=== PATIENT | female | born 1950 | race African-American/Black ===

== ENCOUNTER → 2023-11-18 14:08 | Outpatient (REF) | payer OTHER, SELFPAY | LOC: RCS 14:08 | PROVIDERS: ATTENDING PHYSICIAN Nuclear Medicine Nuclear Cardiology; FAMILY PHYSICIAN Internal Medicine | DX: I50.9 Heart failure, unspecified (principal); I25.5 Ischemic cardiomyopathy; I34.0 Nonrheumatic mitral (valve) insufficiency; Z95.1 Presence of aortocoronary bypass graft | CPT/HCPCS: 93306 ==

== ENCOUNTER → 2024-12-06 13:49 | Outpatient (REF) | payer OTHER, SELFPAY | LOC: HWRCS 13:49 | PROVIDERS: ATTENDING PHYSICIAN Nuclear Medicine Nuclear Cardiology; FAMILY PHYSICIAN Internal Medicine | DX: I25.5 Ischemic cardiomyopathy (principal); I50.9 Heart failure, unspecified; I48.0 Paroxysmal atrial fibrillation; I34.0 Nonrheumatic mitral (valve) insufficiency; Z95.1 Presence of aortocoronary bypass graft | CPT/HCPCS: 93306 ==

== ENCOUNTER 2025-08-31 07:32 | Inpatient (IN) | payer OTHER, SELFPAY ==
[2025-08-30] VITALS (7 sets, daily range): BP systolic 95–121; BP diastolic 66–91; PULSE 94–107; BMI 23.6
--- NOTE | 2025-08-30 18:01 | ED.GENMED ---
History of Present Illness
General
Chief Complaint: Heart Rate Problem
Source: patient
Exam Limitations: none
Time Seen by Provider: 08/30/25 17:10
Nursing documentation reviewed up to this point in time: agreed with
History of Present Illness
History of Present Illness:
75-year-old female with extensive medical history as noted presents to the ER with her son for evaluation of 'episodes' of multiple symptoms. She describes for the past few weeks that she has had roughly 2-3 daily episodes without a clear
trigger�she says that they can happen while active or while resting. She describes sensation of palpitations associated with 'feeling paralyzed,' short of breath, loses control of her bladder. It sounds like they typically last a few minutes at a
time. Her son is at bedside and says that he witnessed 1 of these episodes and she was standing at the time and felt very rigid and unsteady but he was able to hold her up. She was not having tonic-clonic activity and she was able to communicate
with him during the episode that something was wrong. She lost control of her bladder at the time. It sounds like she has a history of seizure activity in the past that was somewhat similar (although no palpitations per patient in the past) and had
been on Keppra but son says that she has not been taking correct dosing and when he checked her pill bottles it looked like all the Keppra was .
Past History
Past History
ED Past Medical History: Arrthythmia (Ventricular fibrillation, atrial fibrillation), CAD, COPD, HTN, Hypercholesterolemia, NIDDM, SC, Seizures and Other (Cardiac arrest)
ED Past Surgical History: Cardiac (CABG �4 in 2003, STEMI, Stent X2)
Social History
Tobacco: Non-smoker
Alcohol: None
Drug: None
Personal:
Living: with family
Family History
Family History: Unable to obtain
Review of Systems
Review of Systems
All Other Systems: ROS reviewed and negative except as documented in HPI and ROS
Respiratory: Reports trouble breathing
Cardiac: Reports palpitations; Denies chest pain
ABD/GI: Denies abdominal pain or vomiting
: Reports incontinence
Neurological: Reports weakness; Denies dizzy or headache
Phy Exam
Physical Exam
Physical Exam:
General: Awake, alert, oriented x3; no acute distress
Head: Normocephalic, atraumatic
Eyes: Conjunctiva normal, pupils equal round and reactive to light bilaterally, sclera anicteric
Throat: Airway intact, handling secretions
Neck: Trachea midline, supple without meningismus
Lungs: Clear to auscultation bilaterally, no wheezing, rales, rhonchi
Heart: Regular rate and rhythm, systolic murmur noted
Neuro: Cranial nerves intact, speech fluid, motor and sensory intact in all extremities
Skin: Warm and dry
Extremities: No edema in extremities, warm and well-perfused
Scores
Heart Failure Risk
Heart Failure Risk Score: Not Applicable
Heart Score for Chest Pain Patients
STEMI patient?: Not applicable
Withdrawal Assessment of Alcohol
Withdrawal Assessment Completed?: Not applicable
Course
Orders/Labs/Results
Orders:
Orders
08/30/25 16:26
Electrocardiogram (*1) Urgent
Reason for Study: Chest Pain
EKG- Treatment ONCE
08/30/25 17:12
CR Chest - 2 Views Urgent
Comment:
Reason For Exam: sob
08/30/25 18:10
Complete Blood Count/With Diff Urgent
Comprehensive Metabolic Panel Urgent
Keppra (Levetiracetam) [S] Urgent
Magnesium Urgent
NT-proBNP Urgent
Troponin I Urgent
08/30/25 18:12
TSH Reflex To Free T4 Urgent
08/30/25 18:14
Add On - Microbiology Urgent
Tests Added?: keppra
08/30/25 19:07
Aspirin Chewable [Low Strength Aspirin] 324 mg PO NOW STA
08/30/25 21:00
Troponin I Urgent
Abnormal Lab Results
08/30/25
18:10
WBC 4.2 L 10^3/uL
(4.8-10.8)
MCHC 31.9 L g/dL
(33.0-37.0)
RDW 15.4 H %
(11.5-14.5)
Neutrophils % 41.6 L %
(42.2-75.2)
Monocytes % 9.8 H %
(1.7-9.3)
Eosinophils % 7.9 H %
(0-6)
Creatinine 1.1 H mg/dL
(0.6-1.0)
Troponin I 0.246 H* ng/ml
08/30/25 18:10
08/30/25 18:10
Vital Signs
Initial and Last Documented VS:
Initial Vital Signs
Temp Pulse Resp BP Pulse Ox
36.4 C 67 20 112/73 99
08/30/25 16:21 08/30/25 16:21 08/30/25 16:21 08/30/25 16:21 08/30/25 16:21
Last Documented Vital Signs
Temp Pulse Resp BP Pulse Ox
36.4 C 67 20 112/73 99
08/30/25 16:21 08/30/25 16:21 08/30/25 16:21 08/30/25 16:21 08/30/25 18:04
MDM/Problems Addressed
Differential Diagnosis Includes:
Seizures versus syncope/presyncope�differential would include primary seizure disorder, electrolyte derangement, dysrhythmia, etc
MDM/Problems Addressed:
75-year-old female with extensive history as noted presents for evaluation of episodic weakness associated with palpitations, shortness of breath and loss of bladder control. She does have a history of seizures with some overlap of presentation as
today and has not been compliant with the appropriate Keppra dose recently. Vitals and exam are as above. EKG here shows atrial fibrillation with heart rate of 100. Plan to check labs including a CBC and a CMP, troponin, TFTs. Check Keppra
level. Check chest x-ray. Will monitor on telemetry.
Labs reviewed: CBC no clinically significant abnormalities, chemistry shows creatinine 1.1 which is baseline. Her troponin is elevated to 0.246. Chest x-ray no acute disease. Overall I wonder if she is more describing syncopal/presyncopal events
especially with her associated palpitations rather than seizure-like events. No chest pain to suggest this is anginal at this point. Will plan to admit for monitoring on telemetry, trending of troponin. Discussed with hospitalist for admission.
Chronic conditions affecting care:
Prior cardiac arrest, CAD, CHF, vascular disease
*Radiology
Radiology exam reviewed: preliminary read by ED provider and radiology read reviewed
*Pulse Oximetry
SaO2: 99
Oxygen Mode of Delivery: Room air
Patient hypoxic: no (99%)
*EKG
Interpreted by ED Provider?: Yes
Heart Rate: 100
Rate: tachycardiac
Rhythm: a-fib
[place]: normal axis
Interval: normal interval
QRS Pattern: normal QRS
Ischemia: non-specific ST changes
*Critical Care Note
Total Time (30-74mins, 75-104mins- exclusive of procedures): Not Applicable
Data Reviewed
Review of Other/Old Records Reveals: Labs, Records and Discharge Summary
Source: patient and records
Patient Management
Discussion with other providers: Hospitalist (Discussed with hospitalist)
Escalation/DeEscalation of care consider admission/obs:
Admission indicated
ED Attending Note
-
Portions of this chart may have been created with voice recognition software.� Occasional wrong word or��sound alike� substitutions may have occurred due to the inherent limitations of voice recognition software.
Discharge Plan
Departure
Patient Disposition: Admit
Date of Disposition: 08/30/25
Time of Disposition: 19:11
Admit to doctor: [facility]
Presentation/result/management discussed w/ accepting MD/DO: Hospitalist
Discharge Problem:
Palpitations, Elevated troponin
Prescriptions:
No Action
cholecalciferol (vitamin D3) 2,000 UNITS tablet
2,000 units PO DAILY
aspirin 81 MG tablet,chewable
81 mg PO DAILY Qty: 30 0RF
multivitamin Tablet
1 tab PO DAILY
Zachary Mag Zinc Plus D3 333 mg-133 unit -133 mg-5 mg Tablet
1,000 tab PO DAILY
levetiracetam 500 mg Tablet
1,000 mg PO BID
carvedilol 3.125 mg Tablet
3.125 mg PO BID
omega 7-cpr-gfh-fish oil [Fish Oil] 1,000 mg (120 mg-180 mg) Capsule
1 cap PO DAILY
rosuvastatin 20 mg Tablet
40 mg PO QPM Qty: 30 11RF
Entresto 24-26 mg Tablet
1 tab PO BID Qty: 60 11RF
ezetimibe 10 mg Tablet
10 mg PO DAILY Qty: 30 11RF
furosemide 40 MG tablet
40 mg PO BID Qty: 60 11RF
Referrals:
Samson Galvez MD [Family Provider, Internal Medicine]
Interventions
Interventions:
*General Assessment Last Done: 08/30/25 16:21
*Neglect/Abuse Screening Last Done: 08/30/25 16:21
Discharge Date and Time
Print Language: PALAUAN
[2025-08-30 18:32] LABS: Hematocrit 38.9 % (37.0-47.0); Hemoglobin 12.4 g/dL (12.0-16.0); Mean Corp Hgb Conc. 31.9 g/dL (33.0-37.0); Mean Corpuscular Volume 84.7 fL (81.0-99.0); Nucleated Red Blood Cells % 0 %; Platelet Count 255 10^3/uL (130-400); Red Cell Dist. Width 15.4 % (11.5-14.5)
[2025-08-30 18:42] LABS: ALT (SGPT) 16 U/L (0-35); AST (SGOT) 31 U/L (14-36); Albumin 4.5 g/dl (3.5-5.0); Alkaline Phosphatase 70 U/L (38-126); Blood Urea Nitrogen 16 mg/dl (7-17); Calcium 9.5 mg/dl (8.4-10.2); Carbon Dioxide 27 mmol/L (22-30); Chloride 105 mmol/L (98-107); Glucose 92 mg/dl (70-99); Magnesium 2.1 mg/dl (1.6-2.3); Potassium 3.7 mmol/L (3.5-5.1); Sodium 143 mmol/L (135-145); Total Protein 7.5 g/dl (6.3-8.2); eGFR 52.73
[2025-08-30 19:02] LABS: Troponin I 0.246 ng/ml
[2025-08-30] MEDS: LOW STRENGTH ASPIRIN 162 MG PO (19:16)
--- NOTE | 2025-08-30 19:19 | HPS.HSE ---
Family Physician
-
Family Physician: Samson Galvez
Chief Complaint
-
Palpitations and Shortness of Breath
History of Present Illness
Patient is an 75 y/o female with an extensive past cardiac history noted below who presents with daily episodes of palpitations, shortness of breath and 'rigidity'. Patient reports episodes occur daily, sometimes as many as four times a day for the
past several weeks. She describes significant palpitations with associated shortness of breath, and then notes she gets very rigid and has to grab onto something. She reports that sometimes these episodes are associated with urinary incontinence.
The episode today was witness by her son who denied any tonic/clonic movements. Patient did see her PCP for these episodes and notes she did have her Keppra level checked and was told it was 'normal'. Son raises concern that patient's Keppra was
noted to be and it seemed based on her pill bottle that patient may not be taking the medication as prescribed.
Medical History
Past Medical History
Past Medical History: Reports Other
Additional Past Medical History:
Cardiac Arrest
Coronary Artery Disease s/p CABG and Stents
Chronic HFrEF
Cardiomyopathy s/p BiV ICD
Paroxysmal Atrial Fibrillation
Essential Hypertension
Hyperlipidemia
Diabetes Mellitus, Type II
CKD Stage III
Seizure Disorder
Polymyalgia Rheumatica
Anxiety / Depression
Past Surgical History: Reports Other
Additional Past Surgical History:
CABG
Breast Augmentation
Social History
Tobacco: Non-smoker
Alcohol: None
Family History
Family History: Not pertinent
Allergies / Home Medications
Allergies reflects when Allergies were last updated in [facility].
Home Medications with original date entered in [facility]
Allergy/Medication List:
Allergies
Allergy/AdvReac Type Severity Reaction Status Date / Time
Iodinated Contrast Media Allergy Itching Verified 08/30/25 20:02
latex Allergy pulls skin Verified 08/30/25 16:25
off
Penicillins Allergy Shortness Verified 08/30/25 16:25
of Breath
-
Tolerated
cefepime
Oct 2019
shellfish derived Allergy swelling, Verified 08/30/25 16:25
pain
Home Medications
cholecalciferol (vitamin D3) 50 mcg (2,000 unit) tablet 2,000 units PO DAILY Supplement 10/01/19
aspirin 81 mg chewable tablet 81 mg PO DAILY #30 tabs 11/04/19
carvedilol 3.125 mg tablet 6.25 mg PO DAILY Heart Disease/Condition 08/05/23
levetiracetam 500 mg tablet 1,000 mg PO BID Neurological Condition 08/05/23
multivitamin 1 tab PO DAILY Supplement 08/05/23
omega 9-zwm-qtd-fish oil 1,000 mg (120 mg-180 mg) capsule (Fish Oil) 1 cap PO DAILY Supplement 08/05/23
ezetimibe 10 mg tablet 10 mg PO DAILY #30 tabs 08/08/23
rosuvastatin 20 mg tablet 40 mg (2 x 20 mg) PO QPM #30 tabs 08/08/23
sacubitril 24 mg-valsartan 26 mg tablet (Entresto) 1 tab PO BID #60 tabs 08/08/23
apixaban 5 mg tablet (Eliquis) 5 mg PO BID 08/30/25
carvedilol 3.125 mg tablet 3.125 mg PO QPM 08/30/25
furosemide 40 mg tablet 40 mg PO DAILY 08/30/25
Review of Systems
-
A 12 point ROS was completed and negative except as noted: Yes
Constitutional: Denies Fever
Respiratory: Reports Trouble Breathing; Denies Cough
Cardiac: Reports Palpitations; Denies Chest Pain
Physical Exam
Vital Signs
Vital Signs
Temp Pulse Resp BP Pulse Ox
97.6 F 67 20 112/73 99
08/30/25 16:21 08/30/25 16:21 08/30/25 16:21 08/30/25 16:21 08/30/25 18:04
Physical Exam
General: Comfortable and Conversant
HEENT: Anicteric and Moist mucous membranes
Respiratory: Clear and Non Labored Respirations
Cardiac: S1/S2 and Irregular Rhythm; No Tachycardia
GI: Soft and Non Tender
Rectal: Deferred by Provider
Musculoskeletal: No Clubbing, No Cyanosis and Other (Trace edema left which patient reports is chronic)
Skin: Warm and Dry
Neuro: Awake, Alert, Oriented and Nonfocal/grossly intact
Psych: Calm
Laboratory Results
-
08/30/25 18:10
08/30/25 18:10
Laboratory Results
Total Bilirubin 0.7 mg/dl (0.2-1.3) 08/30/25 18:10
AST 31 U/L (14-36) 08/30/25 18:10
ALT 16 U/L (0-35) 08/30/25 18:10
Alkaline Phosphatase 70 U/L (38-126) 08/30/25 18:10
Troponin I 0.246 ng/ml H* 08/30/25 18:10
Chest X-Ray:
No acute cardiopulmonary process.
Data Reviewed
-
Lab Data: Labs Reviewed by me
Old Records: Reviewed
Impression/Plan
-
Daily Episodes of Palpitations / Shortness of Breath / Rigidity and intermittent Urinary Incontinence, possibly related to pre-syncope in setting of uncontrolled atrial fibrillation vs Seizure
-See separate plans below
Atrial Fibrillation of unknown duration
-Rate with fair control at present time but suspect period of uncontrolled rate
-Monitor on telemetry
-Continue Eliquis for anticoagulation
-Continue Coreg for rate control
-Attempt to interrogate pacemaker
-Consult Cardiology
Seizure Disorder
-Reviewed outpatient notes with indicate Keppra level on the low side 10.4 earlier this month
-Give Keppra 1000mg IV Now, then resume Keppra 1000mg PO BID
-Check EEG
-Consult Neurology
Elevated Troponin, suspect non-ischemic myocardial injury related to uncontrolled atrial fibrillation
-Continue to trend
Coronary Artery Disease s/p CABG and Stents
-Continue aspirin
-Continue ezetimibe and rosuvastatin
Chronic HFrEF, appears well-compensated
-Continue furosemide
-Continue Entresto
-Monitor daily weights
CKD Stage III
-Creatinine at baseline
DVT proph: Eliquis
Code Status: Full Code
--- NOTE | 2025-08-30 19:53 | W.PN.UPDATE ---
Update Note
Progress Note Update
Patient seen in conjunction with physician family and divorce legal assistant's, I agree with the findings and history and physical and I concur with assessment and plan.
Briefly, patient is a 75-year-old female with past medical history significant for CAD, ischemic cardiomyopathy status post pacemaker AICD, atrial fibrillation on anticoagulation, CHF secondary to ischemic cardiomyopathy with dilated cardiomyopathy,
hypertension, diabetes, COPD presenting to the emergency department with complaints of palpitations as well as stiffness of the left upper extremity.
Patient reports that over the last 2 to 3 weeks she has had sensation of palpitations. She states that it will cause spontaneously lasting minutes to occasionally an hour before dissipating and of course at least 3 times a day. She reports that it
is associated with chest heaviness. She denies feeling dizzy or lightheaded. She denies specifically chest pain. She reports compliance with her medications including anticoagulation. Patient denies any recent swelling of her lower extremities.
She denies orthopnea or PND.
Patient reports that occasionally she has an episode where there is associated loss of bladder continence as well as intermittent episodes where she has stiffness of her left upper extremity. She has a history of seizure disorder for which she
takes Keppra. Son reports that the Keppra which she is taking is old.
In the emergency department patient was afebrile, blood pressure was 112/70 with a pulse rate of 67 and oxygen saturation of 99% on room air. Her chest x-ray is clear. ECG shows atrial fibrillation at a rate of 100.
She does have a troponin that is elevated to 0.2. CBC is unremarkable, electrolytes BUN and creatinine were all in the normal range. BNP was 3500.
Assessment and plan
Palpitations�patient complains of palpitations, has chronic atrial fibrillation and is currently atrial fibrillation. There is suspicion for uncontrolled episodes of atrial fibrillation with rapid ventricular response. She also reports chest
heaviness with episodes and has elevated troponin and history of CAD but is not currently having any chest pain. She is not currently feeling the palpitations now and heart rate is controlled.
� Admit to telemetry
� Trend troponins
� Interrogate pacemaker AICD
� Echocardiogram
� Continue aspirin and Eliquis for now and will continue if troponin trends are stable
� Continue on rate control
Intermittent upper extremity stiffness and incontinence concerning for possible seizure. Patient has not refilled her Keppra in over 6 months he is concerned that she is taking medications. She may also need alternative antiepileptic
drugs.
� Keppra levels pending
� EEG in a.m.
� Neurology consult
� Continue with inpatient Keppra, 1 g IV now and continue 1 g p.o. twice daily for now and monitor neurological exams
CHF
�Continue Lasix 40 daily
� Continue Entresto
CAD
� Continue aspirin and statin as above
DVT prophylaxis�on apixaban
CODE STATUS�full code
[2025-08-30] MEDS: KEPPRA 1000 MG IV (20:54)
--- NOTE | 2025-08-30 22:05 | PTCARENOTE ---
Pt received from ED to 417-1. Pt oriented to room and call mason.
[2025-08-30 22:31] LABS: Troponin I 0.384 ng/ml
[2025-08-30] MEDS: ENTRESTO 24 MG/26 MG 1 TAB PO (23:23)
[2025-08-30 23:43] LABS: INR 1.68; PT 19.9 Sec (11.4-14.6)
[2025-08-30 23:44] LABS: APTT 37.1 Sec (23.4-35.0)
[2025-08-30] MEDS: HEPARIN 25000 UNITS/250 ML IV (23:59)
[2025-08-31] VITALS (10 sets, daily range): BP systolic 91–128; BP diastolic 48–74; PULSE 61–80; BMI 23.4
[2025-08-31 06:42] LABS: APTT 131.5 Sec (23.4-35.0)
[2025-08-31 06:59] LABS: Troponin I 0.225 ng/ml
--- NOTE | 2025-08-31 08:26 | CON.NEURO ---
Addendum entered and electronically signed by Zack Emery MD 08/31/25 14:11:
I saw and examined the patient along with the nurse practitioner Andie Cordova, and agree with her assessment and management plan. Given below is my addendum.
Patient is a 75 year old female with extensive medical history significant for seizures on Keppra, CAD, ischemic cardiomyopathy status post pacemaker AICD, atrial fibrillation on anticoagulation, CHF secondary to ischemic cardiomyopathy with dilated
cardiomyopathy, hypertension, diabetes, COPD presented to the [facility] on 08/30/2025 with her son for evaluation of 'Freezing episodes'.
On neurologic examination, the patient is alert and oriented x 3, speech is clear, cranial nerves II to XII grossly intact, the motor strength is grossly 5 5 bilaterally, sensation is grossly intact and there is no limb ataxia seen.
The patient likely had a seizure with ' freezing episode' and urinary incontinence, due to noncompliance with Keppra which she was on for seizures that started in her childhood and according the patient she has not taken Keppra for about a year.
She does not have a neurologist in town and son requested to be referred to a neurologist nearby.
EEG was done today that shows multiple episodes of electrographic epileptiform discharges in the form of generalized, sharp and slow wave activity lasting about 2 to 2-1/2 seconds (official report to follow soon).
Continue Keppra 1000 mg twice daily.
Continue apixaban for atrial fibrillation.
Plan is to continue with seizure precautions including no driving for 6 months.
I had detailed discussion with the patient and her son regarding assessment and management plan, and they verbalized understanding of our discussion. The need to take Keppra and other medications as prescribed was emphasized to the patient and her
son.
Follow-up with neurology as outpatient.
Original Note:
Neuro Assessment/Plan
Assessment
Patient is a 75 year old female with extensive medical history significant for seizures on Keppra, CAD, ischemic cardiomyopathy status post pacemaker AICD, atrial fibrillation on anticoagulation, CHF secondary to ischemic cardiomyopathy with dilated
cardiomyopathy, hypertension, diabetes, COPD presented to the [facility] on 08/30/2025 with her son for evaluation of 'episodes' of multiple symptoms.
EEG 10/18/2019: There is showed frequent generalized epileptiform discharges predominantly at bilateral frontaltemporal indicating increased risk of seizure.
EEG 10/13/2019: Severely abnormal EEG for age due to independent temporal sharp waves in addition to recurrent spike and wave discharges
EEG 10/09/2019: Intermittent sharp waves in bilateral hemispheres running from 2-6 seconds indicating electrographic epileptiform discharges.
Plan
Impression: seizure activity in the setting of medication non compliance
-obtain EEG as planned
-seizure precautions
-continue Keppra 1000 mg twice daily
-obtain head CT without
-should follow up with neurology outpatient
All questions encouraged and answered, plan of care discussed with Dr. Emery, hospitalist, patient and son
Consultation
Order
Date of Consultation: 08/31/25
Requesting Provider: hospitalist/ Leticia Beckford PA-C
Reason for Consult: seizure
Subjective/Objective
Subjective Data
Date of Service: August 31, 2025
Patient is a 75 year old female with extensive medical history significant for seizures on Keppra, CAD, ischemic cardiomyopathy status post pacemaker AICD, atrial fibrillation on anticoagulation, CHF secondary to ischemic cardiomyopathy with dilated
cardiomyopathy, hypertension, diabetes, COPD presented to the [facility] on 08/30/2025 with her son for evaluation of 'episodes' of multiple symptoms. She describes for the past few weeks that she has had roughly 2-3 daily episodes without a clear
trigger�she says that they can happen while active or while resting. She describes sensation of palpitations associated with 'feeling paralyzed,' short of breath, loses control of her bladder. It sounds like they typically last a few minutes at a
time. Her son is at bedside and says that he witnessed 1 of these episodes and she was standing at the time and felt very rigid and unsteady but he was able to hold her up. She was not having tonic-clonic activity and she was able to communicate
with him during the episode that something was wrong. She lost control of her bladder at the time. According to records, she has a history of seizures since the age of 6 and suffers from complex partial seizures and simple partial seizures. She was
following with her outpatient neurologist Dr. Lovell and has not seen since 2022 since stopped accepting medicare. Past antiepileptic medications include Lamotrigine, Valproic Acid and Keppra and now remains on Keppra only. It sounds like her seizure
activity in the past was somewhat similar (although no palpitations per patient in the past) and had been on Keppra but son says that she has not been taking correct dosing and when he checked her pill bottles it looked like all the Keppra was
. Patient admits to non compliance with medication. Keppra level earlier this month 10.4.
Objective Data
Vital Signs
Temp Pulse Resp BP Pulse Ox
97.6 F 62 18 109/69 99
08/31/25 07:30 08/31/25 07:30 08/31/25 07:30 08/31/25 07:30 08/31/25 07:30
Lab Results
08/30/25 18:10
08/30/25 18:10
PT 19.9 Sec (11.4-14.6) H 08/30/25 23:23
INR 1.68 08/30/25 23:23
APTT 131.5 Sec (23.4-35.0) H 08/31/25 06:22
Sodium 143 mmol/L (135-145) 08/30/25 18:10
Potassium 3.7 mmol/L (3.5-5.1) 08/30/25 18:10
BUN 16 mg/dl (7-17) 08/30/25 18:10
Glucose 92 mg/dl (70-99) 08/30/25 18:10
Calcium 9.5 mg/dl (8.4-10.2) 08/30/25 18:10
Jwi-A-Libyxramgah Pept 3530 pg/ml 08/30/25 18:10
Patient Allergies
Iodinated Contrast Media Allergy (Verified 08/30/25 20:02)
Itching
latex Allergy (Verified 08/30/25 16:25)
pulls skin off
Penicillins Allergy (Verified 08/30/25 16:25)
Shortness of Breath - Tolerated cefepime Oct 2019
shellfish derived Allergy (Verified 08/30/25 16:25)
swelling, pain
Physical Exam
-
General: Comfortable
HEENT: Poor Dentition
Neck: Full Range of Motion
Respiratory: No Dyspnea
Cardiac: No JVD
GI: Non-distended
Skin: Unremarkable
Psych: Negative Intact Judgement/Insight
Extended Neurological Exam
Mood & Affect: Mood Unremarkable
Attention Span & Concentration: Awake, Alert and Interactive
Memory: Vague and Incomplete Historian
Speech: Quality Unremarkable, Quantity Unremarkable and Rate of Production Unremarkable
Cranial Nerve VII: Facial Symmetry: Normal Facial Symmetry
Cranial Nerve VIII: Hearing: Unremarkable Hearing to Normal Conversational Volume
Muscle Strength, Overall: Full Throughout
Data Reviewed
-
CT Head: Report Reviewed and Image Reviewed
EEG: Report Reviewed
Medical Test Reports: Report Reviewed
Labs: Report Reviewed
Reviewed with: Physician
Old Records: Summarized
Medications
-
Active Medications
Generic Name Dose Route Start Last Admin
Trade Name Freq PRN Reason Stop Dose Admin
Acetaminophen 650 mg 08/30/25 22:05
Acetaminophen 325 Mg Tablet PO 09/27/25 22:04
Q4HPRN PRN
mild pain/ fever>100.5F
Aspirin 81 mg 08/31/25 08:00
Aspirin 81 Mg Chewable Tablet PO 09/28/25 07:59
DAILY GENEVIEVE
Carvedilol 6.25 mg 08/31/25 08:00
Carvedilol 6.25 Mg Tablet PO 09/28/25 07:59
DAILY GENEVIEVE
Carvedilol 3.125 mg 12/24/25 18:00
Carvedilol 3.125 Mg Tablet PO 09/28/25 17:59
QPM GENEVIEVE
Ezetimibe 10 mg 08/31/25 08:00
Ezetimibe (Zetia) 10 Mg Tablet PO 09/28/25 07:59
DAILY GENEVIEVE
Furosemide 40 mg 08/31/25 08:00
Furosemide 40 Mg Tablet PO 09/28/25 07:59
DAILY GENEVIEVE
Heparin Sodium 25,000 units in 250 mls @ 0 mls/hr 08/30/25 22:45 08/30/25 23:59
Heparin 23673 Units/250 Ml IV 250 mls
PER PROTOCOL GENEVIEVE Administration
Protocol
Per Protocol
Levetiracetam 1,000 mg 08/31/25 08:00
Levetiracetam 500 Mg Regular Release Tablet PO 09/28/25 07:59
BID GENEVIEVE
Rosuvastatin Calcium 40 mg 08/31/25 18:00
Rosuvastatin (Crestor) 20 Mg Tablet PO 09/28/25 17:59
QPM GENEVIEVE
Sacubitril/Valsartan 1 tab 08/30/25 22:05 08/30/25 23:23
Sacubitril 24 Mg/Valsartan 26 Mg (Entresto) Tab PO 09/27/25 22:04 1 tab
BID GENEVIEVE Administration
Sodium Chloride 0 flush 08/30/25 23:00
Sodium Chloride 0.9% (Flush) Syringe IV 09/27/25 22:59
PER PROTOCOL GENEVIEVE
Home Medications
�Medication �Instructions �Recorded
cholecalciferol (vitamin D3) 50 2,000 units PO DAILY Supplement 10/01/19
mcg (2,000 unit) tablet
aspirin 81 mg chewable tablet 81 mg PO DAILY #30 tabs 11/04/19
carvedilol 3.125 mg tablet 6.25 mg PO DAILY Heart 08/05/23
Disease/Condition
levetiracetam 500 mg tablet 1,000 mg PO BID Neurological 08/05/23
Condition
multivitamin 1 tab PO DAILY Supplement 08/05/23
omega [id number]-[id number]-yta-fish oil 1,000 mg 1 cap PO DAILY Supplement 08/05/23
(120 mg-180 mg) capsule (Fish Oil)
ezetimibe 10 mg tablet 10 mg PO DAILY #30 tabs 08/08/23
rosuvastatin 20 mg tablet 40 mg (2 x 20 mg) PO QPM #30 tabs 08/08/23
sacubitril 24 mg-valsartan 26 mg 1 tab PO BID #60 tabs 08/08/23
tablet (Entresto)
apixaban 5 mg tablet (Eliquis) 5 mg PO BID 08/30/25
carvedilol 3.125 mg tablet 3.125 mg PO QPM 08/30/25
furosemide 40 mg tablet 40 mg PO DAILY 08/30/25
Past History
Past History
ED Past Medical History: Arrthythmia (Ventricular fibrillation, atrial fibrillation), CAD, COPD, HTN, Hypercholesterolemia, NIDDM, [place], Seizures and Other (Cardiac arrest)
ED Past Surgical History: Cardiac (CABG �4 in 2003, STEMI, Stent X2)
Family/Social History
Tobacco: Non-smoker
Alcohol: None
Drug: None
Personal:
Living: with family
Family History: Unable to obtain
--- NOTE | 2025-08-31 09:19 | W.PN.HOSP.TC ---
Today's Communication/Plan
-
see AP
Assessment / Plan
Assessment / Plan
HPI: 75 y/o female with an extensive past cardiac history noted below who presented with daily episodes of palpitations, shortness of breath and 'rigidity'. Patient reports episodes occur daily, sometimes as many as four times a day for the past
several weeks. She described significant palpitations with associated shortness of breath, and then notes she gets very rigid and has to grab onto something. She reported that sometimes these episodes are associated with urinary incontinence. The
episode on DOA was witnessed by her son who denied any tonic/clonic movements. Patient did see her PCP for these episodes and notes she did have her Keppra level checked and was told it was 'normal'. Son raises concern that patient's Keppra was
noted to be and it seemed based on her pill bottle that patient may not be taking the medication as prescribed.
A/P:
# Daily Episodes of Palpitations / Shortness of Breath / Rigidity and intermittent Urinary Incontinence, possibly related to pre-syncope in setting of uncontrolled atrial fibrillation vs Seizure
See separate plans below
# Atrial Fibrillation of unknown duration
Rate with fair control at present time but suspect period of uncontrolled rate
Monitor on telemetry
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
Continue Coreg for rate control
Interrogate pacemaker
Check Echo
Cardiology CS
# Seizure Disorder, suspect due to medication non-compliance per neuro
Reviewed outpatient notes with indicate Keppra level on the low side 10.4 earlier this month
s/p Keppra 1000mg IV Now, then resume Keppra 1000mg PO BID
Check EEG
Neurology on board, [facility] CT head and advice medication compliance
# Elevated Troponin, suspect non-ischemic myocardial injury related to uncontrolled atrial fibrillation
# Coronary Artery Disease s/p CABG and Stents
Continue aspirin
Continue ezetimibe and rosuvastatin
# Chronic HFrEF, appears well-compensated
Continue furosemide
Continue Entresto
Monitor daily weights
# CKD Stage III
Creatinine at baseline
DVT proph: Eliquis
Code Status: Full Code
DW neuro
DW son at bedside
total time 51 min
Anticipated Discharge: 24 - 48 hours
Subjective/Interval History
-
Date of Service: August 31, 2025
Objective Data
-
Labs:
Laboratory Results
08/30/25 08/31/25
23:23 06:22
PT 19.9 H
INR 1.68
APTT 37.1 H 131.5 H
Vital Signs:
Vital Signs
Temp Pulse Resp BP Pulse Ox
36.4 C 62 18 109/69 99
08/31/25 07:30 08/31/25 07:30 08/31/25 07:30 08/31/25 07:30 08/31/25 07:30
Review of Systems
-
History Source: Patient
All other systems: Reviewed and negative
Physical Exam
-
General: Well Developed, Well Nourished, No Apparent Distress, Comfortable and Conversant; Negative Respiratory Distress
HEENT: Normocephalic, Atraumatic, Nose Appears Normal and Ears Appear Normal; Negative Oxygen
Respiratory: Clear to Auscultation and Non Labored Respirations; Negative Accessory Resp Muscle Use
Cardiac: Regular Rhythm, S1/S2 and Murmur (systolic )
GI: Soft, Nontender, Nondistended and Normal Bowel Sounds
Skin: Warm and Dry
Neuro: Awake, Alert, Oriented and AO x 3
Psych: Calm and Intact Judgement/Insight
Data Reviewed
-
Diagnostic Radiology: Report Reviewed by me
Labs: Labs Reviewed by me
[2025-08-31] MEDS: KEPPRA 1000 MG PO ×2 (10:03→21:49)
[2025-08-31] MEDS: COREG 6.25 MG PO (10:03)
[2025-08-31] MEDS: ENTRESTO 24 MG/26 MG 1 TAB PO ×2 (10:03→22:30)
[2025-08-31] MEDS: LASIX 40 MG PO (10:04)
[2025-08-31] MEDS: ZETIA 10 MG PO (10:04)
[2025-08-31] MEDS: LOW STRENGTH ASPIRIN 81 MG PO (10:04)
--- NOTE | 2025-08-31 10:23 | CON.CAR ---
Addendum entered and electronically signed by Felix Newman MD 08/31/25 13:11:
I saw and examined the patient.
The [employer] Operator's note was reviewed and I agree with the note.
Comment: Briefly, 75-year-old woman past medical history of ischemic cardiomyopathy with moderately reduced left ventricular systolic function (EF 35%), remote CABG (2003), cardiac arrest (2019) status post AICD and paroxysmal atrial fibrillation
who presents for evaluation of suspected seizure and was found to be in atrial fibrillation with rapid ventricular response.
ICD interrogated here. No ventricular arrhythmias identified. However increased atrial fibrillation burden is noted.
At the time my evaluation patient was back in sinus rhythm and being atrially paced
Would continue Coreg for rate control of A-fib
Suspect she would benefit from sinus rhythm given history of heart failure, cardiomyopathy and severe mitral regurgitation.
Plan to start amiodarone. Would use 200 mg twice daily for 1 month and then decrease to 200 mg daily.
Resume Eliquis for risk reduction of cardiac stroke if no invasive procedures are planned
Echo here is unchanged from prior with moderately reduced LV systolic function and moderate to severe mitral regurgitation
No evidence of decompensated heart failure
Would continue home doses of Coreg, Entresto, and Lasix
Elevated troponin is noted. Overall trend is flat: 0.246�0.384�0.225�0.155.
Not reporting any chest discomfort
Suspect nonischemic myocardial injury troponin elevation in the setting of rapid A-fib and fixed coronary disease
Options for revascularization are limited given occluded [place] coronaries and vein grafts therefore medical therapy would be most appropriate
Would continue aspirin, high intensity statin/Zetia, BB
Stable cardiac status. We will sign off. Please recall as needed.
Would discharge with the addition of amiodarone 200 mg twice daily
Outpatient cardiology follow-up to be arranged
Original Note:
Consultation
Consultation Request
Date/Time Consultation Requested: 08/31/2025
Date/Time Consultation Performed: 08/31/2025
Requesting Provider: Dr. Waterman
Performing Provider: Rosamaria Guevara PA-C for Dr. Fleix Newman
Reason for Consultation: Abnormal troponin, atrial fibrillation w/ RVR
Medical History
-
History of Present Illness:
Patient is a 75 y/o female with with past medical history significant for CAD status post CABG times 12/2003 with occluded grafts with exception of ARRIAGA to LAD, ischemic cardiomyopathy, cardiac arrest 2019 status post pacemaker ICD, paroxysmal atrial
fibrillation on anticoagulation, CHF secondary to ischemic cardiomyopathy with dilated cardiomyopathy, hypertension, diabetes, COPD, seizure disorder presented to the emergency department 08/30/2025 with complaints of intermittent episodes stiffness
of whole body, muffled sounds and associated with urinary incontinence at times. Happens a few times a day. Concern for seizure as son reported possible noncompliance with taking her Keppra. Cardiology being asked to see patient as she also
complained of intermittent episodes of palpitations, shortness of breath and chest heaviness. These can occur spontaneously lasting minutes and occasionally up to an hour several times a day. She is maintained on Eliquis for history of paroxysmal
atrial fibrillation. In the emergency department patient was afebrile, blood pressure was 112/70 with a pulse rate of 67 and oxygen saturation of 99% on room air. Her chest x-ray is clear. ECG shows atrial fibrillation at a rate of 100 bpm.
Troponin noted to be elevated at 0.2. proBNP 3500. Per review of tele she is going in and out of Afib with RVR.
PMH:
Chronic HFrEF
Severe MR
CAD
Prior CABG �4� in 2003
Acute inferior STEMI 07/14/2018 with 100% occluded LM, LAD, circ, RCA; patent ARRIAGA to LAD occluded SVG to circ s/p PCI and GUS placement. The SVGs to the diagonal and RCA were chronically 100% occluded.
Cath 08/05/2023 with 100% occlusion of [place] arteries. ARRIAGA-LAD is the only remaining patent bypass conduit.� SVG-diagonal, SVG-OM, SVG-RCA are all found to be occludedICM EF 30-35% by echo
h/o cardiac arrest 10/01/19
s/p ICD 10/12/2019
Paroxysmal atrial fibrillation on chronic anticoagulation with Eliquis
HTN
DM 2
HLD
COPD
Severe pulmonary hypertension
h/o DVT
h/o frequent PVCs
h/o gastric Ulcer
h/o seizure disorder
DDD with sciatica
Peripheral vascular disease
Osteoarthritis
Noncompliance
Past Medical History
Past Medical History: Other (See HPI)
Past Surgical History: Cardiac (CABG x 4 2003, ICD) and Other (see above)
Social History
Tobacco: Non-Smoker
Alcohol: None
Drug: None
Living: Residential
Family History
Family History: CAD, Cancer, Diabetes and Hypertension
Allergies / Home Medications
Allergy/AdvReac Type Severity Reaction Status Date / Time
Iodinated Contrast Media Allergy Itching Verified 08/30/25 20:02
latex Allergy pulls skin Verified 08/30/25 16:25
off
Penicillins Allergy Shortness Verified 08/30/25 16:25
of Breath
-
Tolerated
cefepime
Oct 2019
shellfish derived Allergy swelling, Verified 08/30/25 16:25
pain
�Medication �Instructions �Recorded �Confirmed �Type
cholecalciferol (vitamin D3) 50 2,000 units PO DAILY Supplement 10/01/19 08/30/25 History
mcg (2,000 unit) tablet
aspirin 81 mg chewable tablet 81 mg PO DAILY #30 tabs 11/04/19 08/30/25 Rx
carvedilol 3.125 mg tablet 6.25 mg PO DAILY Heart 08/05/23 08/30/25 History
Disease/Condition
levetiracetam 500 mg tablet 1,000 mg PO BID Neurological 08/05/23 08/30/25 History
Condition
multivitamin 1 tab PO DAILY Supplement 08/05/23 08/30/25 History
omega 3-awh-dzs-fish oil 1,000 mg 1 cap PO DAILY Supplement 08/05/23 08/30/25 History
(120 mg-180 mg) capsule (Fish Oil)
ezetimibe 10 mg tablet 10 mg PO DAILY #30 tabs 08/08/23 08/30/25 Rx
rosuvastatin 20 mg tablet 40 mg (2 x 20 mg) PO QPM #30 tabs 08/08/23 08/30/25 Rx
sacubitril 24 mg-valsartan 26 mg 1 tab PO BID #60 tabs 08/08/23 Rx
tablet (Entresto)
apixaban 5 mg tablet (Eliquis) 5 mg PO BID 08/30/25 08/30/25 History
carvedilol 3.125 mg tablet 3.125 mg PO QPM 08/30/25 08/30/25 History
furosemide 40 mg tablet 40 mg PO DAILY 08/30/25 08/30/25 History
Review of Systems
-
History Source: Patient
All other systems: Negative unless noted
Physical Exam
Vital Signs
Temp Pulse Resp BP Pulse Ox
97.6 F 64 18 105/59 99
08/31/25 07:30 08/31/25 10:04 08/31/25 07:30 08/31/25 10:04 08/31/25 07:30
GEN: No distress, awake, Ox3, sitting in chair
HEENT: supple, anicteric, mmm
LUNGS: CTA, no wheezes/rales
CV: Reg, S1/S2, 2/6 syst murmur
ABD: soft, BS+, NT/ND
EXT: No edema, clubbing or cyanosis
NEURO: Gross non-focal
SKIN: No rash
Lab Results
08/30/25 18:10
08/30/25 18:10
Troponin I 0.225 ng/ml H* 08/31/25 06:22
Ahk-G-[id number] Pept 3530 pg/ml 08/30/25 18:10
Impression / Plan
-
PCP: Ras Galvez
Cardiology: Dr. Spring
Impression:
Presented 08/30/2025 with intermittent episodes of left upper extremity rigidity associated with urinary incontinence as well as palpitations
Concern for seizure
Paroxysmal atrial fibrillation w/ RVR
Abnormal troponin
Chronic heart failure with reduced ejection fraction
Chest pain/SOB - likely multifactorial due to coronary disease, pulmonary hypertension, CHF, severe MR, and cardiomyopathy.
Severe pulmonary hypertension
Chronic HFrEF
Severe MR
CAD
Prior CABG �4� in 2003
Acute inferior STEMI 07/14/2018 with 100% occluded LM, LAD, circ, RCA; patent ARRIAGA to LAD occluded SVG to circ s/p PCI and GUS placement. The SVGs to the diagonal and RCA were chronically 100% occluded.
Cath 08/05/2023 with 100% occlusion of [place] arteries. ARRIAGA-LAD is the only remaining patent bypass conduit.� SVG-diagonal, SVG-OM, SVG-RCA are all found to be occludedICM EF 30-35% by echo
h/o cardiac arrest 10/01/19
s/p ICD 10/12/2019
Paroxysmal atrial fibrillation
Not anticoagulated by patient choice
HTN
DM 2
HLD
COPD
h/o DVT
h/o frequent PVCs
h/o gastric Ulcer
h/o seizure disorder
DDD with sciatica
Peripheral vascular disease
Osteoarthritis
Noncompliance
Cath 07/2018:100% occluded left main, 100% occluded LAD at ostium, 100% circumflex at ostium 100% RCA at ostium, ARRIAGA to LAD widely patent, with collaterals to PDA and diagonal, saphenous vein graft to RCA occluded, saphenous vein graft to diagonal
occluded, saphenous vein to circumflex occluded proximally, presumed infarct artery, 2 Synergy stents deployed to saphenous vein graft to circumflex, with thrombectomy, 4.0 x 28 mm, ventriculography severe inferior inferoapical hypokinesis, mild
anterolateral hypokinesis, ejection fraction 28%, no mitral regurgitation
Holter monitor September 2018: 2� three beat runs of VT
Echo 07/15/2018: EF 40-45%, inferolateral basal and mid lateral akinesis inferior hypokinesis, normal RV, normal atria, mild MR, Mac, trace AI, trace TR
Echo 10/04/2019: EF 25-30%, global hypokinesis, inferolateral, lateral, basal septal akinesis normal RV, normal left atrium, normal right atrium, moderate mitral regurgitation, no aortic regurgitation, could not determine pulmonary artery pressure,
dilated IVC
Echo 10/11/2019: EF 35-40%, lateral inferolateral, inferior and basal septal akinesis, moderate to severe mitral regurgitation, pulmonary artery pressure 71-76 mmHg systolic, EF has improved compared to October 04, pulmonary artery pressure as risen
and mitral regurgitation has increased
Echo 07/17/2023: EF 30-35%, stage III diastolic dysfunction, global hypokinesis with akinesis of the basal and mid inferolateral segments and severe hypokinesis of the inferoseptal, inferior and infero apex [place], moderate to severe MR, aortic
sclerosis without stenosis, mild TR, moderate pulmonary hypertension 54 mmHg systolic
Echo 12/06/2024: EF 35%, global hypokinesis. Basal to mid inferolateral akinesis to dyskinesis. Inferior and basal septal akinesis. Mildly dilated left atrium. Moderate to severe MR.
R&LHC 08/05/2023: Severe pulmonary hypertension with near systemic PA pressures and severely reduced CO/CI (2.3/1.3). Suspected severe MR. [place] coronary arteries are 100% occluded. ARRIAGA - LAD is only remaining patent bypass conduit. SVG-diagonal,
SVG-OM, SVG-RCA are all found to be occluded.
Plan:
-Presented 08/30/2025 with intermittent episodes of left upper extremity rigidity associated with urinary incontinence as well as palpitations. Found to be in atrial fibrillation. Also concern for seizure
Patient has history of paroxysmal atrial fibrillation. Per review of outpatient office visit July 2025 A-fib burden has been approximately 4% on ICD interrogation. Now noted to be in atrial fibrillation on admission.
- Per review of telemetry it appears patient is having paroxysmal atrial fibrillation with periods of sinus rhythm. However when she does have periods of atrial fibrillation she has rapid ventricular response.
-ICD interrogation on admission shows increased A-fib burden over the last several weeks. No ventricular arrhythmias noted. Battery life approximately 2 years.
- Previously patient had been on amiodarone. Start amiodarone 200 mg TID. Daily ECG on amiodarone. QTc on admission ECG 451 ms in AFib w/ RVR. Continue carvedilol
- Patient maintained on chronic anticoagulation with Eliquis 5 mg twice daily
- TSH abnormal at 6.40, although free T4 is compensated at 0.84
Abnormal troponin
-Troponin peaked at 0.384 and now downward trending. Suspect nonischemic myocardial injury secondary to atrial fibrillation with rapid ventricular response.
- Patient notes intermittent episodes of chest discomfort particularly when she is in rapid atrial fibrillation. Will attempt rate and rhythm control with initiation of amiodarone
-Known history of multivessel coronary artery disease with prior catheterization in 2022 showing severe [place] vessel occlusions as well as occlusions of 3 bypass grafts. Patient is living on [facility]. Poor candidate for revascularization.
Continue aggressive medical management for her CAD.
- Patient maintained on carvedilol, rosuvastatin, Eliquis and aspirin. Would continue
Chronic heart failure with reduced ejection fraction
- proBNP 3530 on admission, [place] [address], [id number]. Chest x-ray showed no acute cardiopulmonary abnormality
- Weight is actually 4 pounds less currently than at prior office visit. Patient does not appear to be acutely volume overloaded despite elevated proBNP
- Continue oral Lasix 40 mg daily.
- Check echocardiogram. Patient's EF in November 2024 was 35% with moderate to severe MR. Patient has declined surgical intervention/invasive procedures for her valvular disease.
She has known history of seizure disorder and reportedly has been taking old Keppra. Symptoms are concerning for seizure.
-Neurology has been consulted. Plan for EEG and HCT
- Continue Keppra per neurology
PMH 08/31/2025:
Patient is a 75 y/o female with with past medical history significant for CAD status post CABG times 12/2003 with occluded grafts with exception of ARRIAGA to LAD, ischemic cardiomyopathy, cardiac arrest 2019 status post pacemaker ICD, paroxysmal atrial
fibrillation on anticoagulation, CHF secondary to ischemic cardiomyopathy with dilated cardiomyopathy, hypertension, diabetes, COPD, seizure disorder presented to the emergency department 08/30/2025 with complaints of intermittent episodes stiffness
of whole body, muffled sounds and associated with urinary incontinence at times. Happens a few times a day. Concern for seizure as son reported possible noncompliance with taking her Keppra. Cardiology being asked to see patient as she also
complained of intermittent episodes of palpitations, shortness of breath and chest heaviness. These can occur spontaneously lasting minutes and occasionally up to an hour several times a day. She is maintained on Eliquis for history of paroxysmal
atrial fibrillation. In the emergency department patient was afebrile, blood pressure was 112/70 with a pulse rate of 67 and oxygen saturation of 99% on room air. Her chest x-ray is clear. ECG shows atrial fibrillation at a rate of 100 bpm.
Troponin noted to be elevated at 0.2. proBNP 3500. Per review of tele she is going in and out of Afib with RVR.
Data Reviewed
-
EKG: Report Reviewed by me, Discussed with Physician, Discussed with Nurse and Discussed with Patient
Radiology: Report Reviewed by me, Discussed with Physician, Discussed with Nurse and Discussed with Patient
Labs: Labs Reviewed by me, Discussed with Physician, Discussed with Nurse and Discussed with Patient
Old Records: Reviewed
[2025-08-31 12:47] LABS: Troponin I 0.155 ng/ml
--- NOTE | 2025-08-31 13:31 | CM ---
CM reviewed chart, patient seen bedside, initial assessment completed.
Patient is an 75 y/o female with an extensive past cardiac history noted below who presents with daily episodes of palpitations, shortness of breath and 'rigidity'.
Patient resides independently in an apartment, elevator access, no steps to enter.
Patient reports her son lives 12 minutes away and assists as needed.
DME includes: canes, walkers, scooter for community.
Patient denies VN, believe she was at SNF in 2019 but unsure.
PCP Samson Galvez, Pharmacy [facility].
Patient confirms prescription coverage.
MAHAN form verbally reviewed, provided with copy, placed in chart.
Patient confirms transport home from son when stable.
Discussed therapy recommendations of home health, patient agreeable, requesting referral to [facility]. TT to liaison with referral.
CM will continue to follow.
Plan; home with [facility] when stable.
--- NOTE | 2025-08-31 14:13 | EEG.RPT ---
Electroencephalogram Report
Recording
Date of EE08/31/25
Type of EEG: Routine
Done with Video Recording: Yes
Patient Status: Inpatient
Recording Conditions: Awake and Drowsy
Hyperventilation Performed: No
Photic Stimulation Performed: Yes
Report
The duration of the EEG was 28 minutes.
Methods:
21 channel digitized electroencephalogram was performed. The 10-20 International system of electrode placement was used. Video was recorded. ECG was monitored.
EEG interpretation:
The posterior dominant rhythm reaches up to 11 Hz.
The background EEG activity does not show any asymmetry of amplitude or frequency between the hemispheres.
Hyperventilation was not performed.
Photic stimulation did not show any abnormal change.
Drowsiness was demonstrated by attenuation of the background rhythm.
There were multiple episodes of bilateral, generalized, sharp and slow wave discharges, lasting 2 to 2-1/2 seconds.
Impression:
This is an abnormal EEG due to presence of multiple episodes of bilateral electrographic epileptiform discharges.
Clinical correlation:
This EEG is suggestive of diffuse cortical dysfunction. Clinical correlation is recommended in this 75 years old female with a history of seizures since childhood who has been noncompliant with antiepileptic medication.
--- NOTE | 2025-08-31 14:29 | VNURNOTE ---
Home Health Liaison met with patient at bedside to discuss [facility] nurse/therapy, visits, schedule and homebound status. Patient is agreeable and understands that visits at home will be 2-3 x per week to assess and teach medical management.
Patient is aware that [facility] will contact them for start of care within a week after discharge from . Provided contact number for [facility].
PM [facility] referral completed in [facility].
--- NOTE | 2025-08-31 17:44 | PTCARENOTE ---
Assumed care of pt from previous nurse. Pt denies pain. Pt in and out of afib. Pt with some activity intolerance. Pt call mason is within reach, pt rings saleem. will cont to monitor.
[2025-08-31] MEDS: CRESTOR 40 MG PO (18:12)
[2025-08-31] MEDS: PACERONE 200 MG PO (18:14)
[2025-08-31] MEDS: ELIQUIS 5 MG PO (21:49)
[2025-09-01 03:02] VITALS: BP 118/75
[2025-09-01 06:00] VITALS: BMI 23.8
[2025-09-01 07:00] VITALS: BP 101/72
[2025-09-01] MEDS: COREG PO (08:00)
[2025-09-01] MEDS: KEPPRA 1000 MG PO (09:39)
[2025-09-01] MEDS: ENTRESTO 24 MG/26 MG 1 TAB PO (09:40)
[2025-09-01] MEDS: ZETIA 10 MG PO (09:41)
[2025-09-01] MEDS: LOW STRENGTH ASPIRIN 81 MG PO (09:41)
[2025-09-01] MEDS: ELIQUIS 5 MG PO (09:42)
[2025-09-01] MEDS: LASIX 40 MG PO (09:42)
[2025-09-01] MEDS: PACERONE 200 MG PO (09:44)
[2025-09-01 10:26] LABS: Hematocrit 41.1 % (37.0-47.0); Hemoglobin 13.4 g/dL (12.0-16.0); Mean Corp Hgb Conc. 32.6 g/dL (33.0-37.0); Mean Corpuscular Volume 82.7 fL (81.0-99.0); Platelet Count 243 10^3/uL (130-400); Red Cell Dist. Width 15.5 % (11.5-14.5)
[2025-09-01 10:41] LABS: Blood Urea Nitrogen 18 mg/dl (7-17); Calcium 9.4 mg/dl (8.4-10.2); Carbon Dioxide 27 mmol/L (22-30); Chloride 105 mmol/L (98-107); Estimated Creatinine Clearance 39 ml/min; Glucose 114 mg/dl (70-99); Magnesium 2.0 mg/dl (1.6-2.3); Potassium 3.2 mmol/L (3.5-5.1); Sodium 140 mmol/L (135-145); eGFR 47.50
[2025-09-01 11:00] VITALS: BP 109/59
--- NOTE | 2025-09-01 11:31 | W.PN.HOSP.TC ---
Today's Communication/Plan
-
see A/P
Assessment / Plan
Assessment / Plan
HPI: 75 y/o female with an extensive past cardiac history noted below who presented with daily episodes of palpitations, shortness of breath and 'rigidity'. Patient reports episodes occur daily, sometimes as many as four times a day for the past
several weeks. She described significant palpitations with associated shortness of breath, and then notes she gets very rigid and has to grab onto something. She reported that sometimes these episodes are associated with urinary incontinence. The
episode on DOA was witnessed by her son who denied any tonic/clonic movements. Patient did see her PCP for these episodes and notes she did have her Keppra level checked and was told it was 'normal'. Son raises concern that patient's Keppra was
noted to be and it seemed based on her pill bottle that patient may not be taking the medication as prescribed.
A/P:
# Daily Episodes of Palpitations / Shortness of Breath / Rigidity and intermittent Urinary Incontinence, possibly related to pre-syncope in setting of uncontrolled atrial fibrillation vs Seizure
See separate plans below
# Atrial Fibrillation of unknown duration
Rate with fair control at present time but suspect period of uncontrolled rate
Monitor on telemetry
Continue ENVIRONMENTAL WEB CRAWLER Eliquis for anticoagulation
Continue ENVIRONMENTAL WEB CRAWLER Coreg for rate control
added amiodarone 200 mg twice daily
ICD interrogated. No ventricular arrhythmias identified. However increased atrial fibrillation burden is noted.
Echo this admission 08/31 unrevealing:
1. Left ventricular ejection fraction is moderately reduced with an ejection fraction of 33 % by May's biplane method of discs.
2. Grossly normal right ventricular size and function.
3. Moderate to severe mitral valve regurgitation.
4. Trace tricuspid regurgitation. Estimated pulmonary artery pressure of 23 mmHg assuming a right atrial pressure of 3 mmHg.
5. Compared to prior study dated 12/06/2024, there is little significant change.
Appreciate Cardiology input
# Seizure Disorder, suspect due to medication non-compliance per neuro
Reviewed outpatient notes with indicate Keppra level on the low side 10.4 earlier this month
s/p Keppra 1000mg IV Now, then resume Keppra 1000mg PO BID
EEG noted bilateral electrographic epileptiform discharges.
CT head No acute intracranial abnormality noted.
Neurology on board, recc to cont ENVIRONMENTAL WEB CRAWLER Keppra and reinforced on compliance
# Elevated Troponin, 2/2 non-ischemic myocardial injury related to uncontrolled atrial fibrillation
# Coronary Artery Disease s/p CABG and Stents
Continue aspirin
Continue ezetimibe and rosuvastatin
# Chronic HFrEF, appears well-compensated
Continue furosemide
Continue Entresto
Monitor daily weights
# CKD Stage III
Creatinine at baseline
# Hypokalemia
replete
DVT proph: Eliquis
Code Status: Full Code
DW RN
updated son on the phone
Anticipated Discharge: Today
Subjective/Interval History
-
Date of Service: September 01, 2025
Objective Data
-
Labs:
Laboratory Results
09/01/25
10:18
WBC 4.0 L
Hgb 13.4
Hct 41.1
Plt Count 243
Sodium 140
Potassium 3.2 L
Chloride 105
Carbon Dioxide 27
BUN 18 H
Creatinine 1.2 H
Glucose 114 H
Calcium 9.4
Vital Signs:
Vital Signs
Temp Pulse Resp BP Pulse Ox
36.6 C 70 16 101/72 98
09/01/25 03:02 09/01/25 09:44 09/01/25 07:00 09/01/25 09:44 09/01/25 07:00
I&O
08/31/25 09/01/25 09/02/25
06:59 06:59 06:59
Intake Total 1380 / 1380
Balance 1380 / 1380
Review of Systems
-
History Source: Patient
All other systems: Reviewed and negative
Physical Exam
-
General: Well Developed, Well Nourished, No Apparent Distress, Comfortable and Conversant; Negative Respiratory Distress
HEENT: Normocephalic, Atraumatic, Nose Appears Normal and Ears Appear Normal; Negative Oxygen
Respiratory: Clear to Auscultation and Non Labored Respirations; Negative Accessory Resp Muscle Use
Cardiac: Regular Rhythm, S1/S2 and Murmur (systolic )
GI: Soft, Nontender, Nondistended and Normal Bowel Sounds
Skin: Warm and Dry
Neuro: Awake, Alert, Oriented and AO x 3
Psych: Calm and Intact Judgement/Insight
Data Reviewed
-
Diagnostic Radiology: Report Reviewed by me
Medical Tests (Nuc Med, Echo etc): Report Reviewed by me (echo)
Labs: Labs Reviewed by me
[2025-09-01] MEDS: KCL 40 MEQ PO (11:49)
--- NOTE | 2025-09-01 12:36 | W.DCSUMMARY ---
Discharge Summary
Discharge Data
Date of Admission: 08/31/25
Date of Discharge: 09/01/25
Total time spent discharging patient (in min): 40
-
Pending Results: No
Hospital Course
Principal Diagnosis:
Paroxysmal Atrial Fibrillation with intermittent RVR
Seizure disorder, suspect due to medication non-compliance per neuro
Chronic Diagnoses:�
Coronary Artery Disease s/p CABG (2003) and stents (2019) status post AICD
Chronic HFrEF, compensated
CKD Stage III
Consultations:�
Neurology
Cardiology
Procedures:�
None
Clinical course:�
This is a 75 y/o female with past medical history as stated above, who presented with palpitations, shortness of breath and 'rigidity'.
Problem 1:
Paroxysmal Atrial Fibrillation with intermittent RVR.
Her ICD was interrogated, which showed no ventricular arrhythmias but noted increased atrial fibrillation burden.
Amiodarone 200 mg twice daily was added this admission by cardiology, in addition to her prior to admission Coreg.
She can continue with prior admission Eliquis for anticoagulation.
Her echo this admission 08/31 was unrevealing:
1. Left ventricular ejection fraction is moderately reduced with an ejection fraction of 33 % by May's biplane method of discs.
2. Grossly normal right ventricular size and function.
3. Moderate to severe mitral valve regurgitation.
4. Trace tricuspid regurgitation. Estimated pulmonary artery pressure of 23 mmHg assuming a right atrial pressure of 3 mmHg.
5. Compared to prior study dated 12/06/2024, there is little significant change.
Problem 2:
Seizure Disorder, suspect due to medication non-compliance per neuro.
She received IV Keppra 1000 x1 dose on admission, and then was continue with prior to admission Keppra at 1000 mg PO BID.
Her EEG noted bilateral electrographic epileptiform discharges.
Her CT head showed no acute intracranial abnormality noted.
Per neurology, seizure disorder likely due to medication noncompliance. She has been educated on the importance of medication adherence.
As for the rest of her medical problems, they were stable during her hospital stay.
Discharge Plan
-
Patient Disposition: Home (Routine Discharge)
Discharge Diagnosis/Procedures: Paroxysmal Atrial Fibrillation;
Seizure disorder
Condition: Fair
Diet: As tolerated, Low Fat and Low Cholesterol
Activity: As tolerated
Driving Restrictions: As prior to admission
Blood Work: BMP in 1 week, result to PCP
Referrals:
Samson Galvez MD [Family Provider, Internal Medicine] - in less than 1 week
Additional Discharge Medication Instructions: We have added Amiodarone 200 mg twice daily for your A fib
Prescriptions:
New
amiodarone [Pacerone] 200 mg Tablet
200 mg PO BID Qty: 60 0RF
(DME) BMP
See Rx Instructions .Route .MEDSUPPLY Qty: 1 0RF
Rx Instructions:
09/05/2025 to 09/16/2025, result to PCP
# hypokalemia
Continued
cholecalciferol (vitamin D3) 2,000 UNITS tablet
2,000 units PO DAILY
multivitamin Tablet
1 tab PO DAILY
omega [id number]-fish oil [Fish Oil] 1,000 mg (120 mg-180 mg) Capsule
1 cap PO DAILY
levetiracetam 500 mg Tablet
1,000 mg PO BID Qty: 60 0RF
carvedilol 3.125 mg tablet
3.125 mg PO QPM Qty: 30 0RF
carvedilol 3.125 mg Tablet
6.25 mg PO DAILY Qty: 30 0RF
aspirin 81 MG tablet,chewable
81 mg PO DAILY Qty: 30 0RF
ezetimibe 10 mg Tablet
10 mg PO DAILY Qty: 30 0RF
rosuvastatin 20 mg Tablet
40 mg PO QPM Qty: 30 0RF
Eliquis 5 mg tablet
5 mg PO BID Qty: 60 0RF
sacubitril-valsartan [Entresto] 24-26 mg Tablet
1 tab PO BID Qty: 60 0RF
Changed
furosemide 40 MG tablet
40 mg PO DAILY Qty: 30 0RF
Discharge Orders:
Discharge Patient (As Directed); Ordered 09/01/25
Ordered By: Jolene Aguilar
Discharge Date and Time
Print Language: LUXEMBOURGER
[2025-09-01] MEDS: KCL 20 MEQ PO (14:08)
--- NOTE | 2025-09-01 14:51 | PTCARENOTE ---
patient was received awake, alert and oriented x 3. patient can make her needs known and understands when being spoken too. patient received her medications and treatments as ordered without any difficulty. patient's received her potassium as
ordered x 2 prior to discharge with no difficulty. discharge instructions reviewed with patient and her son - both of which expressed understanding of discharge instructions. all of patient's personal belongings were collected and packed. patient
was transported by this nurse to the exit via wheelchair where she was assisted into her son's car without any difficulty.
[2025-09-01 22:14] LABS: Hepatitis C Antibody Negative (Negative)
--- NOTE | 2025-09-05 15:31 | PN.CDI ---
CDI
- -
CDI:
Physician Documentation Request
Admit Date: 08/31/25 07:32
Dear Doctor,
Please review the following and provide your response in the progress notes.
Clinical Indicators:
Per RD assessment 08/31, 'Pt meets ASPEN/AND criteria for Severe Protein Calorie Malnutrition as evidenced by unintended weight loss >7.5% in 3 months and nutrition intake </= 75% of estimated energy needs >/= one month, moderate SQ loss over rib
cage, moderate muscle loss over temporals and severe muscle loss over clavicles.'
Based on the above information and your assessment, which of the following most accurately represents the patient's nutritional status?
Severe Malnutrition
Other (please specify)Unable to determine
Rombauer Criteria ([employer] Hospitalist 2017)
2 or more criteria must be present for either
non severe or severe malnutrition
Note that the criteria differs related to the
presence of an acute or chronic illness
Acute Illness Chronic Illness
Energy Intake Non Severe: <75% for >7 days Non Severe: <75% for >1 month
Severe: <50% for >5 days Severe: <75% for >1 month
Weight Loss Non Severe: 1-2% over 1 week Non Severe: 5% over 1 month
5% over 1 month 7.5% over 3 months
7.5% over 3 months 10% over 6 months
1 year N/A 20% over 1 year
Severe: >2% over 1 week Severe: >5% over 1 month
>5% over 1 month >7.5% over 3 months
>7.5% over 3 months >10% over 6 months
1 year N/A >20% over 1 year
Body Fat Non Severe: Mild Decrease Non Severe: Mild Loss
Severe: Moderate Decrease Severe: Severe Loss
Muscle Mass Non Severe: Mild Decrease Non Severe: Mild Loss
Severe: Moderate Decrease Severe: Severe Loss
Fluid Accumulation Non Severe: Mild Accumulation Non Severe: Mild Accumulation
Severe: Moderate to severe Severe: Moderate to severe
accumulation accumulation
Reduced Real Estate Associate Attorney Strength Non Severe: N/A Non Severe: N/A
Severe: Measurably reduced Severe: Measurably reduced
Additional criteria that can be used to Determine if Mild or Moderate Malnutrition ([employer] Manual 2018)
Mild Moderate Severe
Albumin gm/dl <3.0 gm/dl <2.5 gm/dl <2.0 gm/dl
Pre Albumin mg/dl <15 gm/dl <10 mg/dl <5.0 mg/dl
BMI <18.5 <17 <16
Use of terms such as suspected, likely, concern for, or probable (associated with a specific diagnosis that is being evaluated, monitored, or treated as if it exists) are acceptable and can be coded in the inpatient setting, when documented at the
time of discharge.
Thank you,
Annita Leyva
CDI Specialist
Please use your independent medical judgment in providing your response.
== END 2025-09-01 14:57 | disposition home health service (06) | DRG 101 ==
LOC: 4 WEST ACU 07:32
PROVIDERS: Physician Assistant Medical; ADMITTING PHYSICIAN Internal Medicine; ATTENDING PHYSICIAN Internal Medicine; CONSULT PHYSICIAN Internal Medicine Cardiovascular Disease; CONSULT PHYSICIAN Psychiatry & Neurology Neurology; EMERGENCY PHYSICIAN Emergency Medicine; FAMILY PHYSICIAN Internal Medicine
PROC: 4B02XTZ Measurement of Cardiac Defibrillator, External Approach (ICD-10-PCS; 2025-08-31)
DX: G40.209 Localization-related (focal) (partial) symptomatic epilepsy and epileptic syndromes with complex partial seizures, not intractable, without status epilepticus (principal); I13.0 Hypertensive heart and chronic kidney disease with heart failure and stage 1 through stage 4 chronic kidney disease, or unspecified chronic kidney disease; I50.22 Chronic systolic (congestive) heart failure; I5A Non-ischemic myocardial injury (non-traumatic); I42.0 Dilated cardiomyopathy; I48.0 Paroxysmal atrial fibrillation; N18.30 Chronic kidney disease, stage 3 unspecified; E11.22 Type 2 diabetes mellitus with diabetic chronic kidney disease; E78.00 Pure hypercholesterolemia, unspecified; I25.10 Atherosclerotic heart disease of native coronary artery without angina pectoris; J44.9 Chronic obstructive pulmonary disease, unspecified; M35.3 Polymyalgia rheumatica; I25.5 Ischemic cardiomyopathy; E87.6 Hypokalemia; I27.20 Pulmonary hypertension, unspecified; F41.9 Anxiety disorder, unspecified; M19.90 Unspecified osteoarthritis, unspecified site; R32 Unspecified urinary incontinence; F32.A Depression, unspecified; E11.51 Type 2 diabetes mellitus with diabetic peripheral angiopathy without gangrene; T42.6X6A Underdosing of other antiepileptic and sedative-hypnotic drugs, initial encounter; Y92.9 Unspecified place or not applicable; I25.2 Old myocardial infarction; Z95.1 Presence of aortocoronary bypass graft; Z95.5 Presence of coronary angioplasty implant and graft; Z86.74 Personal history of sudden cardiac arrest; Z79.82 Long term (current) use of aspirin; Z79.899 Other long term (current) drug therapy; Z91.041 Radiographic dye allergy status; Z91.040 Latex allergy status; Z88.0 Allergy status to penicillin; Z91.013 Allergy to seafood; Z91.148 Patient's other noncompliance with medication regimen for other reason; Z79.01 Long term (current) use of anticoagulants; Z95.810 Presence of automatic (implantable) cardiac defibrillator; Z86.718 Personal history of other venous thrombosis and embolism; Z87.11 Personal history of peptic ulcer disease
CPT/HCPCS: 70450; 71046; 80048; 80053; 80177; 83735; 83880; 84439; 84443; 84484; 85025; 85027; 85610; 85730; 86803; 93005; 93306; 95816; 96374; 97162; 99285; Q9950